=== PATIENT | female | born 1995 | race American Indian/Alaskan Native ===

== ENCOUNTER 2016-12-23 02:13 | Emergency (ER) | payer SELFPAY ==
[2016-12-23 03:10] VITALS: BP 96/57
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
== END 2016-12-23 10:40 | disposition home or self-care (01) ==
LOC: ED 02:13
DX: H11.32 Conjunctival hemorrhage, left eye (principal); F17.210 Nicotine dependence, cigarettes, uncomplicated; F12.10 Cannabis abuse, uncomplicated
CPT/HCPCS: 99282

== ENCOUNTER 2017-02-18 19:57 | Emergency (ER) | payer SELFPAY ==
[2017-02-18 21:50] LABS: Bilirubin,Urine NEG (Negative); Blood,Urine NEG (Negative); Ketones,Urine TR mg/dL (Negative); Leukocyte Esterase,Urine TR (Negative); Mucus,Urine 2+ /HPF; Nitrite,Urine NEG (Negative); Protein,Urine <15 mg/dL mg/dL (Negative)
[2017-02-18 22:16] VITALS: BP 105/54
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
== END 2017-02-19 02:46 | disposition left against medical advice (07) ==
LOC: ED 19:57
DX: M54.2 Cervicalgia (principal); Z53.21 Procedure and treatment not carried out due to patient leaving prior to being seen by health care provider
CPT/HCPCS: 70490; 81001; 81025